=== PATIENT | female | born 1990 | race African-American/Black ===

== ENCOUNTER → 2018-08-13 | Outpatient (CLI) | payer OTHER ==
[~2018-08-13] MED LIST: CIPROFLOXACIN500 M1 PO; DOXYCYCLINE 10100 MG PO; FAMOTIDINE PO; FLAGYL500 MG PO; FLEXERIL PO; HYDROCODON-ACE1 EAC7 PO; IBUPROFEN 600600 M1 PO; MACROBID 100 M100 M1 PO; NOHOMEMEDICATIONS; NORCO 5-325 TA1 EACH PO; PEPCID20 MG PO; PERCOCET 5-3251 EACH PO; PRENATAL MULTI1 EAC2 PO; PRENATAL PO; PRENATAL TABLE1 EAC3 PO; ZOFRAN4 MG PO
== END ==
LOC: RAD 09:42
DX: N63.10 Unspecified lump in the right breast, unspecified quadrant (principal)

== ENCOUNTER 2019-06-22 20:30 | Emergency (ER) | payer OTHER ==
[~2019-06-22] VITALS: Ht 157.5 cm; Wt 90.7 kg
[2019-06-22] MEDS ORDERED: VIIBRYD1 EAC1 PO (20:53)
[2019-06-22] MEDS ORDERED: ADIPEX-P37.5 M1 PO (20:54)
[2019-06-22 22:53] VITALS: BP 122/83
== END 2019-06-22 23:10 | disposition home or self-care (01) ==
LOC: ER 20:30
DX: S27.818A Other injury of esophagus (thoracic part), initial encounter (principal); J45.909 Unspecified asthma, uncomplicated; F17.210 Nicotine dependence, cigarettes, uncomplicated; Z98.890 Other specified postprocedural states; Z90.49 Acquired absence of other specified parts of digestive tract; Z88.6 Allergy status to analgesic agent; Z91.018 Allergy to other foods; W25.XXXA Contact with sharp glass, initial encounter; Y93.89 Activity, other specified; Y92.89 Other specified places as the place of occurrence of the external cause; Y99.8 Other external cause status

== ENCOUNTER 2021-03-22 10:09 | Emergency (ER) | payer OTHER ==
[~2021-03-22] VITALS: Ht 157.5 cm; Wt 88.9 kg
[~2021-03-22 10:09] MED LIST changes: +ADIPEX-P37.5 M1 PO; +VIIBRYD1 EAC1 PO
[2021-03-22] MEDS ORDERED: LEXAPRO 10 MG T10 M2 PO (10:19)
[2021-03-22 10:54] LABS: ABSOLUTE NEUTROPHILS 2.9 thou/uL (1.4-8.2); BASOPHILS 0.7 % (0.0-2.0); EOSINOPHILS 0.8 % (0.0-3.0); HEMATOCRIT 37.2 % (37.0-47.0); HEMOGLOBIN 12.4 gm/dL (12.0-15.0); LYMPHOCYTES 40.6 % (24.0-44.0); MCH 27.5 pg (26.0-34.0); MCHC 33.4 g/dL (28.0-37.0); MCV 82.3 fL (80.0-100.0); MONOCYTES 6.9 % (1.0-8.0); PLATELET COUNT 216 thou/uL (150-400); RBC 4.52 mil/uL (4.20-5.00); RDW 14.1 % (10.5-14.5); WBC 5.6 thou/uL (4.0-11.0)
[2021-03-22 11:02] LABS: ANION GAP 10 mmol/L (7-16); BUN 9 mg/dL (7-18); CALCIUM 8.8 mg/dL (8.5-10.1); CHLORIDE 106 mmol/L (98-107); CO2 23 mmol/L (21-32); CREATININE 0.8 mg/dL (0.6-1.0); GLUCOSE 103 mg/dL (74-106); POTASSIUM 3.9 mmol/L (3.5-5.1); SODIUM 139 mmol/L (136-145)
[2021-03-22 11:11] LABS: TROPONIN-I <0.06 ng/mL (<0.06)
--- NOTE | 2021-03-22 12:26 | EKG ---
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
[2021-03-22 13:35] VITALS: BP 109/69
== END 2021-03-22 14:02 | disposition home or self-care (01) ==
LOC: ER 10:09
PROVIDERS: Student in an Organized Health Care Education/Training Program
DX: R07.89 Other chest pain (principal); R51.9 Headache, unspecified; M62.838 Other muscle spasm; J45.909 Unspecified asthma, uncomplicated; F17.210 Nicotine dependence, cigarettes, uncomplicated; Z88.6 Allergy status to analgesic agent; Z79.899 Other long term (current) drug therapy